=== PATIENT | male | born 1985 | race Caucasian/White ===

== ENCOUNTER 2022-01-22 08:28 | Outpatient (CLI) | payer BC, SELFPAY ==
--- NOTE | 2022-01-22 11:00 | NEURO_ITS ---
Impression: # Complains of pain, numbness and inability to use fingers. 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 # Normal needle/EMG exam. # Clinical correlation recommended. Nerve Conduction Studies Anti Sensory Summary Table Stim Site NR Peak (ms) P-T Amp (?V) Site1 Site2 Delta-P (ms) Dist (cm) Khoa (m/s) Left Median Anti Sensory (2-3nd Digit) Wrist 3.4 71.5 Wrist 2-3nd Digit 3.4 14.0 41 Wrist 3.5 55.5 Wrist 2-3nd Digit 3.4 14.0 41 Left Radial Anti Sensory (Base 1st Digit) Wrist 2.4 36.1 Wrist Base 1st Digit 2.4 0.0 Left Ulnar Anti Sensory (5th Digit) Wrist 3.2 55.4 Wrist 5th Digit 3.2 14.0 44 Motor Summary Table Stim Site NR Onset (ms) O-P Amp (mV) Site1 Site2 Delta-0 (ms) Dist (cm) Khao (m/s) Left Median Motor (Abd Poll Brev) Wrist 3.9 2.2 Elbow Wrist 5.2 29.0 56 Elbow 9.1 2.3 Left Ulnar Motor (Abd Dig Minimi) Wrist 4.1 4.0 A Elbow Wrist 6.4 32.0 50 A Elbow 10.5 3.1 B Elbow Wrist 5.2 27.0 52 B Elbow 9.3 3.6 F Wave Studies NR F-Lat (ms) L-R F-Lat (ms) Left Median (Mrkrs) (Abd Poll Brev) 29.59 Left Ulnar (Mrkrs) (Abd Dig Min) 30.94 EMG Side Muscle Nerve Root Ins Act Fibs Amp Dur Recrt Comment Left 1stDorInt Ulnar C8-T1 Nml Nml Nml Nml Nml Left Ext Indicis Radial (Post Int) C7-8 Nml Nml Nml Nml Nml Left Ext Digitorum Radial (Post Int) C7-8 Nml Nml Nml Nml Nml Left BrachioRad Radial C5-6 Nml Nml Nml Nml Nml Left PronatorTeres Median C6-7 Nml Nml Nml Nml Nml Left Abd Poll Brev Median C8-T1 Nml Nml Nml Nml Nml Left ABD Dig Min Ulnar C8-T1 Nml Nml Nml Nml Nml MTDD
== END 2022-01-22 08:29 | disposition home or self-care (01) ==
LOC: ANHNEURO 08:31
PROVIDERS: PCP Family Medicine; Visit Provider Physician Assistant
DX: R29.898 Other symptoms and signs involving the musculoskeletal system (principal); G56.22 Lesion of ulnar nerve, left upper limb
CPT/HCPCS: 95886; 95909